=== PATIENT | male | born 1940 | race Caucasian/White ===

== ENCOUNTER → 2016-11-21 | Outpatient (CLI) | payer OTHER ==
[~2016-11-21] MED LIST: BYETTA PEN 11 PENIN1 SUBQ; METFORMIN HCL500 MG PO
== END ==
LOC: RAD 11:50
DX: M25.511 Pain in right shoulder (principal); M25.552 Pain in left hip

== ENCOUNTER 2017-09-12 08:20 | Emergency (ER) | payer OTHER ==
[~2017-09-12] VITALS: Ht 165.1 cm; Wt 82.6 kg
[2017-09-12] MEDS ORDERED: PIOGLITAZONE15 MG (08:27)
[2017-09-12] MEDS ORDERED: COLACE100 MG PO (08:28)
[2017-09-12] MEDS ORDERED: JARDIANCE25 MG PO (08:28)
[2017-09-12] MEDS ORDERED: NORCO 5-325 TA1 EACH PO (08:32)
[2017-09-12] MEDS ORDERED: PREDNISONE 20 M20 MG PO (08:32)
== END 2017-09-12 08:44 | disposition home or self-care (01) ==
LOC: ER 08:20
DX: M54.30 Sciatica, unspecified side (principal); I10 Essential (primary) hypertension; E11.9 Type 2 diabetes mellitus without complications; E78.00 Pure hypercholesterolemia, unspecified